=== PATIENT | male | born 1960 | race Two or more races ===

== ENCOUNTER 2020-11-02 05:14 | Emergency (ER) | payer MEDICARE, OTHER ==
[~2020-11-02] VITALS: Ht 182.9 cm; Wt 81.6 kg
[~2020-11-02 05:14] MED LIST: CALCIUM600 M1 PO; KEFLEX500 MG ORAL; LIORESAL20 MG ORAL; NEXIUM20 MG ORAL; NORCO 10/3251 EA ORAL; VESICARE10 MG ORAL; VITAMIN B-1100 MG ORAL
[2020-11-02 05:21] VITALS: BP 158/92
[2020-11-02] MEDS ORDERED: HYDROmorphone 1mg/ml Carpuject ONE (05:23)
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
[2020-11-02] MEDS ORDERED: HYDROmorphone 1mg/ml Carpuject IM ONE ×2 (05:30→06:15)
[2020-11-02] MEDS ORDERED: HYDROCODON-ACE1 EA15 ORAL (05:52)
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
[2020-11-02 06:27] VITALS: BP 158/92
== END 2020-11-02 06:27 | disposition home or self-care (01) ==
LOC: EDBD 05:14 → EDUNIT# 05:14 → EMR 05:28
DX: S42.401A Unspecified fracture of lower end of right humerus, initial encounter for closed fracture (principal); W01.190A Fall on same level from slipping, tripping and stumbling with subsequent striking against furniture, initial encounter; Y93.01 Activity, walking, marching and hiking; Y92.013 Bedroom of single-family (private) house as the place of occurrence of the external cause
CPT/HCPCS: 29105; 73060; 96372; 99283; J1170